=== PATIENT | male | born 2000 | race Asian ===

== ENCOUNTER 2022-06-17 15:13 | Emergency (ER) | payer OTHER ==
[2022-06-17 16:02] LABS: BASOPHILS % (AUTO) 0.2 %; EOSINOPHILS % (AUTO) 0.3 %; HCT - HEMATOCRIT 51.2 % (42.0-52.0); HGB - HEMOGLOBIN 17.2 g/dL (14.0-18.0); LYMPHOCYTES # (AUTO) 2.1 10^3/uL (1.5-3.5); LYMPHOCYTES % (AUTO) 20.2 %; MEAN CORPUSCULAR HEMOGLOBIN 29.3 pg (27.0-31.0); MEAN CORPUSCULAR HGB CONC 33.6 g/dL (32.0-36.0); MEAN CORPUSCULAR VOLUME 87.1 fL (80.0-94.0); MEAN PLATELET VOLUME 9.5 fL (7.4-11.4); MONOCYTES # (AUTO) 0.7 10^3/uL (0.0-1.0); MONOCYTES % (AUTO) 6.9 %; NEUTROPHILS # (AUTO) 7.3 10^3/uL (1.5-6.6); PLT - PLATELET COUNT 198 10^3/uL (130-450); RED BLOOD COUNT 5.88 10^6/uL (4.70-6.10); RED CELL DISTRIBUTION WIDTH 11.7 % (12.0-15.0); WHITE BLOOD COUNT 10.2 x10^3/uL (4.8-10.8)
[2022-06-17 17:01] LABS: ALBUMIN 4.2 g/dL (3.2-5.5); ALBUMIN/GLOBULIN RATIO 1.4 (1.0-2.2); BILIRUBIN,TOTAL 0.7 mg/dL (0.2-1.0); CALCIUM 9.3 mg/dL (8.5-10.3); POTASSIUM 3.8 mmol/L (3.5-5.0); TOTAL PROTEIN 7.2 g/dL (6.7-8.2)
[2022-06-17 17:45] LABS: BILIRUBIN,URINE NEGATIVE (NEGATIVE); GLUCOSE, URINE (UA) NEGATIVE (NEGATIVE); KETONES,URINE (UA) NEGATIVE (NEGATIVE); LEUKOCYTE ESTERASE, URINE NEGATIVE (NEGATIVE); NITRITE,URINE NEGATIVE (NEGATIVE); OCCULT BLOOD,URINE NEGATIVE (NEGATIVE); PH,URINE 5.5 PH (5.0-7.5); PROTEIN,URINE NEGATIVE (NEGATIVE); UROBILINOGEN,URINE 0.2 (NORMAL) E.U./dL (NORMAL)
[2022-06-17 17:58] LABS: CLARITY,URINE CLEAR (CLEAR)
--- NOTE | 2022-06-17 19:02 | ED Physician Documentation ---
PD HPI ABD PAIN - Stated complaint Stated Complaint: ABD PX - Chief complaint Chief Complaint: Abd Pain - History obtained from History obtained from: Patient - History of Present Illness Pain level max: 8 Pain level now: 2 Location: Epigastric Associated symptoms: No: Nausea, Vomiting, Diarrhea, Constipation, Melena - Additional information Additional information: Patient is a 22-year-old male who presents to the emergency department abdominal pain today. He states that it started after eating a turkey sandwich at lunch. It is epigastric. Nonradiating. Nothing makes it better or worse. Initially was an 8 out of 10, now down to a 2 out of 10. Has not had similar symptoms pr eviously. No fevers. No chills. Does not use any drugs, smoke or use alcohol. He is not on any medications at home. Review of Systems Constitutional: denies: Fever, Chills : denies: Dysuria Skin: denies: Rash Neurologic: denies: Headache PD PAST MEDICAL HISTORY - Past Medical History Past Medical History: No - Past Surgical History Past Surgical History: No - Present Medications Home Medications: Ambulatory Orders Medication Instructions Recorded Confirmed No Known Home Medications 06/17/22 06/17/22 - Allergies Allergies/Adverse Reactions: Allergies Allergy/AdvReac Type Severity Reaction Status Date / Time No Known Drug Allergies Allergy Verified 06/17/22 15:48 - Living Situation Living Arrangement: reports: At home - Social History Does the pt smoke?: No Smoking Status: Never smoker Does the pt drink ETOH?: No Does the pt have substance abuse?: No - Family History Family history: reports: Non contributory PD ED PE NORMAL - Vitals Vital signs reviewed: Yes - General General: Alert and oriented X 3, No acute distress - HEENT HEENT: PERRL - Cardiac Cardiac: RRR, No murmur - Respiratory Respiratory: Clear bilaterally - Abdomen Abdomen: Normal bowel sounds, Soft, Non tender, Non distended - Back Back: No CVA TTP, No spinal TTP - Derm Derm: Warm and dry - Extremities Extremities: No edema - Neuro Neuro: Alert and oriented X 3 - Psych Psych: Normal mood, Normal affect Results - Vitals Vitals: Vital Signs - 24 hr 06/17/22 06/17/22 06/17/22 15:42 18:50 21:02 Temperature 36.7 C 36.3 C L 36.9 C Heart Rate 78 72 70 Respiratory 16 16 16 Rate Blood Pressure 126/79 114/55 L 127/60 O2 Saturation 100 99 99 Oxygen O2 Source Room air - Labs Labs: Laboratory Tests 06/17/22 06/17/22 06/17/22 15:50 15:56 15:56 WBC 10.2 RBC 5.88 Hgb 17.2 Hct 51.2 MCV 87.1 MCH 29.3 MCHC 33.6 RDW 11.7 L Plt Count 198 MPV 9.5 Neut # (Auto) 7.3 H Lymph # (Auto) 2.1 [place] # (Auto) 0.7 Eos # (Auto) 0.0 Baso # (Auto) 0.0 Absolute Nucleated RBC 0.00 Nucleated RBC % 0.0 Sodium 140 Potassium 3.8 Chloride 102 Carbon Dioxide 31 Anion Gap 7.0 BUN 27 H Creatinine 1.0 Estimated GFR (MDRD) 95 Glucose 103 H Calcium 9.3 Total Bilirubin 0.7 AST 23 ALT 30 Alkaline Phosphatase 59 Total Protein 7.2 Albumin 4.2 Globulin 3.0 Albumin/Globulin Ratio 1.4 Triglycerides Cholesterol LDL Cholesterol, Calc VLDL Cholesterol HDL Cholesterol LDL/HDL Ratio Cholesterol/HDL Ratio Lipase 1152 H Urine Color YELLOW Urine Clarity CLEAR Urine pH 5.5 Ur Specific [place] >=1.030 H Urine Protein NEGATIVE Urine Glucose (UA) NEGATIVE Urine Ketones NEGATIVE Urine Occult Blood NEGATIVE Urine Nitrite NEGATIVE Urine Bilirubin NEGATIVE Urine Urobilinogen 0.2 (NORMAL) Ur Leukocyte Esterase NEGATIVE Ur Microscopic Review NOT INDICATED Urine Culture Comments NOT INDICATED 06/17/22 15:56 WBC RBC Hgb Hct MCV MCH MCHC RDW Plt Count MPV Neut # (Auto) Lymph # (Auto) [place] # (Auto) Eos # (Auto) Baso # (Auto) Absolute Nucleated RBC Nucleated RBC % Sodium Potassium Chloride Carbon Dioxide Anion Gap BUN Creatinine Estimated GFR (MDRD) Glucose Calcium Total Bilirubin AST ALT Alkaline Phosphatase Total Protein Albumin Globulin Albumin/Globulin Ratio Triglycerides 146 Cholesterol 155 LDL Cholesterol, Calc 79 VLDL Cholesterol 29 HDL Cholesterol 47 L LDL/HDL Ratio 1.7 Cholesterol/HDL Ratio 3.3 Lipase Urine Color Urine Clarity Urine pH Ur Specific [place] Urine Protein Urine Glucose (UA) Urine Ketones Urine Occult Blood Urine Nitrite Urine Bilirubin Urine Urobilinogen Ur Leukocyte Esterase Ur Microscopic Review Urine Culture Comments - Rads (name of study) RUQ US Radiology: Final report received, See rad report PD Medical Decision Making - ED course Complexity details: reviewed results, re-evaluated patient, considered differential, d/w patient ED course: A CBC was ordered and is unremarkable. His ER abdominal panel is remarkable for a significant elevation in his lipase, 1152. Urinalysis and triglycerides are normal. Patient is very well appearing, nontoxic. Afebrile. Symptoms resolved in the emergency department and he is not having any pain. His ultrasound does not show any acute abnormalities. Unclear etiology of his pancreatitis today. He is not on any medication that would cause this. He denies any alcohol or drug use. Recommend the patient follow a clear liquid diet and follow up with his doctor in one to two days for a recheck. Patient counseled regarding signs and symptoms for which I believe an urgent reevaluation would be necessary. Patient with good understanding of and agreement to plan and is comfortable going home at this time. Departure - Departure Disposition: 01 , Self Care Clinical Impression: Pancreatitis Qualifiers: Chronicity: acute Pancreatitis type: idiopathic Acute pancreatitis complication: no infection or necrosis Qualified Code(s): K85.00 - Idiopathic acute pancreatitis without necrosis or infection Condition: Good Instructions: ED Pancreatitis Follow-Up: [facility] [Provider Group] - Within 3 Days Comments: Please follow-up with your doctor for further care. You had a significantly elevated pancreatic enzyme level called a lipase. This is consistent with pancreatitis. Your lipase was at 1150 today. Your liver tests were normal. Your ultrasound does not show any acute abnormalities. Your lipid testing is normal as well. You should have this level redrawn in 2 to 3 days with your doctor. Please follow a liquid diet at home, try to stay on clear liquids for the next 24 hours. Please return for fevers, worsening pain, vomiting or any other new or worsening symptoms. Forms: Activity restrictions Discharge Date/Time: 06/17/22 21:02
[2022-06-17 19:33] LABS: CHOL/HDL RATIO 3.3 (<5.0); CHOLESTEROL 155 mg/dL; HDL CHOLESTEROL 47 mg/dL; LDL CHOLESTEROL,CALCULATED 79 mg/dL; LDL/HDL RATIO 1.7 (<3.6); TRIGLYCERIDES 146 mg/dL; VLDL CHOLESTEROL 29 mg/dL
[2022-06-17 21:03] VITALS: BP 127/60
--- NOTE | 2022-06-17 21:14 | Ultrasound Report ---
PROCEDURE: Abdomen Limited INDICATIONS: pancreatitis, epigastric/RUQ pain TECHNIQUE: Real-time focused scanning was performed of the abdomen, with image documentation. COMPARISON: None. FINDINGS: Liver: Liver is normal in size without focal hepatic lesions identified. Gallbladder: Gallbladder demonstrates no stones, wall thickening, or pericholecystic fluid. Biliary ducts: No intrahepatic or extrahepatic biliary ductal dilatation. Pancreas: The visualized pancreas appears unremarkable sonographically. Right kidney: Right kidney measures 11.2 cm. No hydronephrosis. There are renal cysts demonstrated, m easuring up to 2.4 cm. IMPRESSION: 1. No evidence of cholelithiasis or cholecystitis. Reviewed by: Maxwell Flores MD on 06/17/2022 9:13 PM PST Approved by: Maxwell Flores MD on 06/17/2022 9:13 PM PST Station ID: [id number]
== END 2022-06-17 21:02 | disposition home or self-care (01) ==
LOC: ED 15:13
DX: K85.00 Idiopathic acute pancreatitis without necrosis or infection (principal)
CPT/HCPCS: 36415; 80053; 80061; 81001; 81003; 83690; 83721; 85025; 87086; 99283; 99284